=== PATIENT | male | born 1960 | race Caucasian/White ===

== ENCOUNTER → 2016-07-25 | Outpatient (CLI) | payer BC ==
[~2016-07-25] MED LIST: AZIT250T PO; CETI10TA84 PO; PRED20TA PO
--- NOTE | 2016-07-25 16:34 | DIAGNOSTIC IMAGING REPORT ---
Venous Doppler right leg RIGHT VENOUS DOPP LOWER EXT UNILAT CLINICAL HISTORY: PAIN AND SWELLING IN LOWER LEG Right TECHNIQUE: Venous Doppler COMPARISON STUDY: None FINDINGS: Normal study IMPRESSION: Normal study Electronically signed by: Сергей Calvin M.D. 07/25/2016 4:33 PM Dictated Date/Time: 07/25/2016 4:32 PM
== END | disposition home or self-care (01) ==
LOC: C.ULTR 16:03
PROVIDERS: ATTEND Physician Assistant Medical
DX: M79.604 Pain in right leg (principal); M79.89 Other specified soft tissue disorders

== ENCOUNTER → 2016-09-09 | Outpatient (CLI) | payer BC ==
[2016-09-09 17:31] LABS: BASO % 0.4 %; BASO ABS # 0.03 K/uL (0-0.2); COMPLETE YES; HEMATOCRIT 42.5 % (42-52); LYMPH % 24.5 %; LYMPH ABS # 1.87 K/uL (1.2-3.4); MEAN CELL VOLUME 91.6 fL (80-100); MEAN CORPUSCULAR HEMOGLOBIN 30.2 pg (25-34); MEAN CORPUSCULAR HGB CONC 32.9 g/dl (32-36); MEAN PLATELET VOLUME 9.7 fL (7.4-10.4); MONO % 7.9 %; NEUT % 64.2 %; PLATELET COUNT 279 K/uL (130-400); RED BLOOD COUNT 4.64 M/uL (4.7-6.1); WHITE BLOOD COUNT 7.62 K/uL (4.8-10.8)
[2016-09-09 17:37] LABS: ALT/SGPT 26 U/L (12-78); BLOOD UREA NITROGEN 14 mg/dl (7-18); BUN/CREATININE RATIO 11.8 (10-20); CALCIUM 9.4 mg/dl (8.5-10.1); CARBON DIOXIDE 27 mmol/L (21-32); CHLORIDE 105 mmol/L (98-107); GLUCOSE 83 mg/dl (70-99); SODIUM 140 mmol/L (136-145); URINE APPEARANCE CLEAR (CLEAR); URINE BILIRUBIN NEG (NEG); URINE COLOR YELLOW; URINE NITRITE NEG (NEG); URINE PH 7.5 (4.5-7.5); URINE SPECIFIC GRAVITY 1.012 (1.000-1.030); UROBILINOGEN NEG (NEG); ZZUR CULT IF INDIC CLEAN CATCH NO
[2016-09-09 17:40] LABS: ALB/GLOB RATIO 1.1 (0.9-2); ALKALINE PHOSPHATASE 61 U/L (45-117); AST/SGOT 24 U/L (15-37); MANUAL MICROSCOPIC REQUIRED? NO; REVIEW REQ? NO
== END | disposition home or self-care (01) ==
LOC: C.LAB1850 15:22
PROVIDERS: ATTEND Physician Assistant Medical
DX: R10.11 Right upper quadrant pain (principal)

== ENCOUNTER → 2016-09-13 | Outpatient (CLI) | payer BC ==
--- NOTE | 2016-09-13 07:56 | DIAGNOSTIC IMAGING REPORT ---
ABDOMEN LIMITED (US) CLINICAL HISTORY: 55 years-old Male presenting with right upper quadrant abdominal pain. TECHNIQUE: Real-time grayscale and limited color Doppler ultrasound imaging of the abdomen limited to the right upper quadrant was performed. COMPARISON: 12/15/2015. FINDINGS: Pancreas: Largely obscured due to overlying bowel gas. Liver: Normal echogenicity and echotexture. The liver measures 16.4 cm in maximal sagittal dimension. Main portal vein patent with normal directional flow. Biliary: No intrahepatic biliary ductal dilatation. Common bile duct measures up to 3 mm in diameter. Gallbladder: Minimal sludge within the nondistended gallbladder. No significant gallbladder wall thickening. No pericholecystic fluid. Right kidney: Normal in size and echogenicity. Right kidney measures 10.2 cm. No hydronephrosis. Vasculature: Visualized portions of the IVC and abdominal aorta normal. Ascites: None. IMPRESSION: 1. Minimal gallbladder sludge. No evidence of cholelithiasis or cholecystitis. Electronically signed by: René Gordon M.D. 09/13/2016 7:55 AM Dictated Date/Time: 09/13/2016 7:51 AM
== END | disposition home or self-care (01) ==
LOC: C.ULTRBC 07:16
PROVIDERS: ATTEND Physician Assistant Medical
DX: R10.11 Right upper quadrant pain (principal)

== ENCOUNTER → 2016-09-24 | Outpatient (CLI) | payer BC ==
[~2016-09-24] MED LIST changes: +SINCALIDE IV ONE; +SODIUM CHLORIDE 0.9% IV ONE
--- NOTE | 2016-09-24 09:57 | DIAGNOSTIC IMAGING REPORT ---
HEPATOBILIARY EF IMAGING CLINICAL HISTORY: 55 years-old Male with R10.11 Abdominal pain, RUQ (right upper quadrant)R93.5 Abnormal. TECHNIQUE: Following the intravenous administration of 5.5 mCi of technetium-99m Choletec, sequential abdominal images were obtained. In order to evaluate the contractile response of the gallbladder, 1.55 mcg of Kinevac was administered by slow intravenous infusion over 30 minutes starting approximately 60 min after the administration of the radiopharmaceutical. Sequential imaging was continued for 45 min after the start of the Kinevac infusion. COMPARISON: Right upper quadrant ultrasound 09/13/2016 FINDINGS: There is prompt, uniform accumulation of the tracer by the liver. There is normal filling of the intrahepatic ducts, common bile duct and gallbladder and normal excretion of the tracer into the duodenum. There is adequate contraction of the gallbladder. The calculated gallbladder ejection fraction is 98% (normal >40%). There is no significant enterogastric reflux. IMPRESSION: 1. Normal contractile response of the gallbladder to Kinevac infusion. 2. Normal biliary imaging study. The above report was generated using voice recognition software. It may contain grammatical, syntax or spelling errors. Electronically signed by: Kranthi Hall M.D. 09/24/2016 9:56 AM Dictated Date/Time: 09/24/2016 9:51 AM
== END | disposition home or self-care (01) ==
LOC: C.NUCL 07:35
PROVIDERS: ATTEND Physician Assistant
DX: R10.11 Right upper quadrant pain (principal); R93.5 Abnormal findings on diagnostic imaging of other abdominal regions, including retroperitoneum

== ENCOUNTER → 2016-12-27 | Outpatient (CLI) | payer BC ==
[~2016-12-27] MED LIST changes: -SINCALIDE IV ONE; -SODIUM CHLORIDE 0.9% IV ONE
--- NOTE | 2016-12-27 08:28 | DIAGNOSTIC IMAGING REPORT ---
ABDOMINAL AORTIC ULTRASOUND CLINICAL HISTORY: AORTIC ANEURYSM COMPARISON STUDY: None. FINDINGS: The proximal abdominal aorta measures 2.1 x 2.0 cm, mid aorta 1.9 x 1.8 cm, distal aorta 1.7 x 1.6 cm. The iliac arteries measure 1.2 and 1.1 cm in diameter. Minimal calcified plaque within the abdominal aorta. IMPRESSION: No evidence for an abdominal aortic aneurysm Electronically signed by: Natan Nur M.D. 12/27/2016 8:27 AM Dictated Date/Time: 12/27/2016 8:26 AM
== END | disposition home or self-care (01) ==
LOC: C.ULTRBC 07:52
PROVIDERS: ATTEND Internal Medicine Pulmonary Disease
DX: Z82.49 Family history of ischemic heart disease and other diseases of the circulatory system (principal); Z12.5 Encounter for screening for malignant neoplasm of prostate

== ENCOUNTER → 2016-12-27 | Outpatient (CLI) | payer BC ==
[2016-12-27 11:23] LABS: CHOLESTEROL/HDL RATIO 2.8; PROSTATE SPECIFIC ANTIGEN 1.4 ng/ml (0.000-4.000)
== END | disposition home or self-care (01) ==
LOC: C.LABBC 08:17
PROVIDERS: ATTEND Internal Medicine Pulmonary Disease
DX: Z12.5 Encounter for screening for malignant neoplasm of prostate (principal); Z82.49 Family history of ischemic heart disease and other diseases of the circulatory system

== ENCOUNTER → 2017-05-27 | Outpatient (CLI) | payer OTHER ==
[2017-05-27 13:12] LABS: BASO % 0.5 %; BASO ABS # 0.03 K/uL (0-0.2); EOS % 5.2 %; EOS ABS # 0.31 K/uL (0-0.5); HEMATOCRIT 42.2 % (42-52); HEMOGLOBIN 14.8 g/dL (14.0-18.0); IG# 0.03 K/uL (0.00-0.02); LYMPH % 29.9 %; LYMPH ABS # 1.78 K/uL (1.2-3.4); MEAN CELL VOLUME 89.4 fL (80-100); MEAN CORPUSCULAR HEMOGLOBIN 31.4 pg (25-34); MEAN CORPUSCULAR HGB CONC 35.1 g/dl (32-36); MEAN PLATELET VOLUME 9.3 fL (7.4-10.4); MONO % 8.9 %; MONO ABS # 0.53 K/uL (0.11-0.59); NEUT ABS # 3.28 K/uL (1.4-6.5); PLATELET COUNT 222 K/uL (130-400); RED CELL DISTRIBUTION WIDTH CV 12.6 % (11.5-14.5); RED CELL DISTRIBUTION WIDTH SD 41.1 fL (36.4-46.3); WHITE BLOOD COUNT 5.96 K/uL (4.8-10.8)
== END | disposition home or self-care (01) ==
LOC: C.LABBC 11:38
PROVIDERS: ATTEND Physician Assistant
DX: L63.9 Alopecia areata, unspecified (principal)

== ENCOUNTER → 2017-06-24 | Outpatient (CLI) | payer OTHER ==
[2017-06-24 10:49] LABS: ALBUMIN 3.9 gm/dl (3.4-5.0); ALT/SGPT 27 U/L (12-78); AST/SGOT 29 U/L (15-37); BLOOD UREA NITROGEN 18 mg/dl (7-18); CALCIUM 8.8 mg/dl (8.5-10.1); CARBON DIOXIDE 30 mmol/L (21-32); GLUCOSE 83 mg/dl (70-99); SODIUM 138 mmol/L (136-145)
[2017-06-24 10:51] LABS: ALKALINE PHOSPHATASE 58 U/L (45-117); TOTAL PROTEIN 7.2 gm/dl (6.4-8.2)
== END | disposition home or self-care (01) ==
LOC: C.LAB1850 09:15
PROVIDERS: ATTEND Nurse Practitioner
DX: L63.9 Alopecia areata, unspecified (principal)

== ENCOUNTER → 2017-07-16 | Outpatient (CLI) | payer OTHER ==
--- NOTE | 2017-07-16 09:01 | DIAGNOSTIC IMAGING REPORT ---
CHEST-PA,LAT AND OBLIQUE VIEWS (5 views) CLINICAL HISTORY: L63.9 Alopecia COMPARISON STUDY: 08/22/2008 FINDINGS: The cardiac and mediastinal contours remain stable. There is no failure. There is no focal pulmonary consolidation. There are no pleural effusions. No suspicious pulmonary masses are evident. IMPRESSION: No active disease in the chest. Electronically signed by: Manuel Mñuoz M.D. 07/16/2017 9:00 AM Dictated Date/Time: 07/16/2017 8:58 AM
[2017-07-16 10:07] LABS: TRANSFERRIN 240 mg/dl (200-360)
== END | disposition home or self-care (01) ==
LOC: C.RAD1850 08:13
PROVIDERS: ATTEND Physician Assistant
DX: L63.9 Alopecia areata, unspecified (principal)